=== PATIENT | male | born 1965 | race Caucasian/White ===

== ENCOUNTER 2023-10-20 15:37 | Outpatient (AMB) | payer BC, SELFPAY ==
--- NOTE | 2023-10-20 15:44 | A.OFFPC_ITS ---
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. Patient reports he has no concerns at this time. Camp Assistant Required: No Accompanied by: Self / Same As Patient Allergies No Known Allergies Allergy (Verified 10/20/23 15:49) Medication List - Last Reconciled 10/20/23 by Mayte Huizar MD chlorthalidone 25 mg PO DAILY dextroamphetamine-amphetamine 15 mg (Adderall) 15 mg PO BID ibuprofen 600 mg PO Q6H PRN levothyroxine 125 mcg PO DAILY Tobacco use date assessed: 10/20/23 Dental Screening Dental Screen Date: 10/20/23 Did you have a dental visit in the last 12 months?: Yes Did you have a dental problem in the last 6 months where you did not have access to dental care?: No Was dental information given to patient?: Patient has dentist HPI HPI Comments History of Present Illness Details 58 year old male with a past medical his tory of hypertension, thyroid ca with post surgical hypothyroid, obesity, ADD presenting for follow up CV: On chlorthalidone. BP 130/70. Denies headaches, vision changes. No chest pain or shortness of breath. ADD: On adderall. Uses marijuana intermittently History of thyroid cancer. Following with endocrinology. Reports medication compliance. Onychomycoses-improvement following oral therapy. LFTs remained stable through treatment Colonoscopy 10/16/2021. ROS CONSTITUTIONAL: Denies weight loss, fever and chills. HEENT: Denies changes in vision and hearing. RESPIRATORY: Denies SOB and cough. CV: Denies palpitations and CP GI: Denies abdominal pain, nausea, vomiting and diarrhea. : Denies dysuria and urinary frequency. MSK: Denies new myalgia and joint pain. SKIN: Denies rash and pruritus. NEUROLOGICAL: Denies headache PSYCHIATRIC: Denies recent changes in mood. PHYSICAL EXAM: GENERAL: Alert and oriented x 3. NAD EYES: EOMI. Anicteric. HENT: Moist mucous membranes. No scleral icterus. No cervical lymphadenopathy. LUNGS: Clear to auscultation bilaterally. CARDIOVASCULAR: Regular rate and rhythm. No murmur. No JVD. ABDOMEN: Soft, non-tender +bs EXTREMITIES: No edema. Non-tender. SKIN: No rashes or lesions. Warm. NEUROLOGIC: No focal neurological deficits. CN II-XII grossly intact PSYCHIATRIC: Cooperative. 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 Post-surgical hypothyroidism Onychomycosis Obese Hypertension Thyroid cancer Surgical History H/O colonoscopy History of appendectomy Family History Mother Diabetes Father Smoker Brother Brain cancer Maternal Grandmother Diabetes Maternal Grandfather Diabetes Social History Household Members: None Housing: House Are you a primary animal care technician to a significant other at home: No Do you presently have visiting nurse or other home services: No 75 years or older and lives alone: No Alcohol intake: never Patient Tobacco Use Status: Former Tobacco user Tobacco use type: Smokeless Tobacco e-Cigarette/Vaping Use: Never Used Substance Use Type: Marijuana service: No Current occupational status: employed Current occupation: [employer] Current occupational exposures/hazards: No Cognitive needs: No Hearing needs: No Vision needs: No Questionnaire PHQ-9 Over the last 2 weeks, how often have you been bothered by any of the following problems? 1. Little interest or pleasure in doing things: not at all 2. Feeling down, depressed, or hopeless: not at all 3. Trouble falling or staying asleep, or sleeping too much: not at all 4. Feeling tired or having little energy: not at all 5. Poor appetite or overeating: not at all 6. Feeling bad about yourself - or that you are a failure or have let yourself or your family down: not at all 7. Trouble concentrating on things, such as reading the newspaper or watching television: not at all 8. Moving or speaking so slowly that other people could have noticed. Or the opposite - being so fidgety or restless that you have been moving around a lot more than usual: not at all 9. Thoughts that you would be better off or of hurting yourself in some way: not at all Total score: 0 Depression Screening Interpretation: Negative (neg) Depression Screening Done: Yes 39883 - PHQ-9 Billing: Yes Source: Developed by Drs. Escobar Orellana, Thalia Henao, Luis Angel Oliva and colleagues, with an educational mark from [employer]. Thrive Questionnaire Date Thrive assessed: 10/20/23 I am a: Patient What is your living situation today?: I have a steady place to live Within the past 12 months, did the food you bought not last and you didn't have the money to get more?: Never true Within the past 12 months, did you worry whether your food would run out before you got money to buy more?: Never true Do you have trouble paying for medicines?: No Do you have trouble getting transportation to medical appointments?: No Do you have trouble paying your heating and electricity bill?: No Do you have trouble taking care of your child, family member or friend?: No Do you have trouble with day-to-day activities such as bathing, preparing meals, shopping, managing finances, etc.?: No Are you currently unemployed and looking for a job?: No Are you interested in more education?: No Please select the resources that you would like help with: None Currently or been in a relationship where the following occur: No concerns reported THRIVE Score: 0 AUDIT C Alcohol Use Questionnaire (AUDIT-C) 1. How often do you have a drink containing alcohol?: Never 3. How often do you have six or more drinks on one occasion?: Never Total Score: 0 VICTORINA-7 AMB Questionnaire VICTORINA-7 Date VICTORINA - 7 assessed: 10/20/23 Feeling nervous, anxious, or on edge: 0 = Not at all Not being able to stop or control worryin = Not at all Worrying too much about different things: 0 = Not at all Trouble relaxin = Not at all Being so restless that it is hard to sit still: 0 = Not at all Becoming easily annoyed or irritable: 0 = Not at all Feeling afraid as if something awful might happen: 0 = Not at all Total VICTORINA-7 score (0-4 normal; 5-9 mild; 10-14 moderate; 15-21 severe): 0 Source: Developed by Drs. Escobar Orellana, Thalia Henao, Luis Angel Oliva and colleagues, with an educational mark from [employer]. VICTORINA-7 Assessment Billing VICTORINA-7 Assessment Tool: VICTORINA-7 Assessment 52366 Physical exam (Primary Care) Vital Signs: Last Vital Signs Pulse 75 10/20/23 15:45 Resp 12 10/20/23 15:45 BP 130/70 10/20/23 15:45 Pulse Ox 99 10/20/23 15:45 Oxygen Delivery Method Room Air 10/20/23 15:45 BMI result Body Mass Index 33.2 Tobacco/Smoking Status: Tobacco use Status Tobacco use date assessed 10/20/23 10/20/23 15:52 Patient Tobacco Use Status Former Tobacco user 10/20/23 15:52 Tobacco use type Smokeless Tobacco 10/20/23 15:52 e-Cigarette/Vaping Use Never Used 10/20/23 15:52 PHQ-9: PHQ-9 Score PHQ-9: Total score 0 10/20/23 16:13 Depression Screening Interpretation: Negative (neg) Thrive Assessment: Date of Thrive Assessment Date Thrive assessed 10/20/23 10/20/23 15:55 Currently or been in a relationship where the following occur: No concerns reported Assessment and Plan Assessment & Plan (1) ADD (attention deficit disorder): Code(s): F98.8 - Other specified behavioral and emotional disorders with onset usually occurring in childhood and adolescence Qualifiers: Attention deficit type: attention or concentration deficit Qualified Code(s): R41.840 - Attention and concentration deficit Plan: stable on adderall. Going on vacation. Can fill early-pay out of pocket if needed (2) Post-surgical hypothyroidism: Code(s): E89.0 - Postprocedural hypothyroidism (3) Hypertension: Code(s): I10 - Essential (primary) hypertension Qualifiers: Hypertension type: primary hypertension Qualified Code(s): I10 - Essential (primary) hypertension Medications: New sildenafil (Viagra) administer 30 minutes to 4 hours before activity 100 mg PO DAILY PRN 30 tabs 11RF sexual activity Changed From dextroamphetamine-amphetamine 15 mg administer doses at least 4-6 hours apart; Partial Fill upon patient request. 15 mg PO BID 60 tabs 0RF F98.8 - Other specified behavioral and emotional disorders with onset usually occurring in childhood and adolescence To dextroamphetamine-amphetamine 15 mg (Adderall) administer doses at least 4-6 hours apart; Partial Fill upon patient request. Ok to fill early. Ok for patient to do partial fill pay out of pocket if insurance does not cover early 15 mg PO BID 60 days 120 tabs 0RF F98.8 - Other specified behavioral and emotional disorders with onset usually occurring in childhood and adolescence Refilled dextroamphetamine-amphetamine 15 mg administer doses at least 4-6 hours apart; Partial Fill upon patient request. 15 mg PO BID 60 tabs 0RF Coding Level of Care Code Est Pt Level 4 (41139) Diagnoses Attention or concentration deficit R41.840 Attention deficit type: attention or concentration deficit Post-surgical hypothyroidism E89.0 Primary hypertension I10 Hypertension type: primary hypertension Additional Codes VICTORINA-7 Assessment Billing - VICTORINA-7 Assessment Tool: VICTORINA-7 Assessment [id number] ([id number])
[2023-10-20 15:45] VITALS: BP 130/70; PULSE 75; RESP 12; O2SAT 99; BMI 33.2
== END 2023-10-20 16:16 | disposition home or self-care (01) ==
PROVIDERS: PCP Internal Medicine; Visit Provider Internal Medicine
DX: R41.840 Attention and concentration deficit (principal); E89.0 Postprocedural hypothyroidism; I10 Essential (primary) hypertension
CPT/HCPCS: 99214

== ENCOUNTER 2024-01-23 15:42 | Outpatient (AMB) | payer BC, SELFPAY ==
--- NOTE | 2024-01-23 15:46 | MHC.PC.OV ---
Vital Signs 01/23/24 15:49 Height 5 ft 4.57 in Weight 197 lb 4 oz BMI 33.3 BP 156/79 H Blood Pressure Location Lt brachial Position Sitting Respiration 16 Pulse 71 Pulse Source Pulse Oximeter Temp 97.5 F Temp Source Temporal Artery Scan Pulse Oximetry (%) 98 Oxygen Delivery Method Room Air Intake Visit Reasons: Bump under Skin Intake Note: possible hernia above umbilicus Allergies No Known Allergies Allergy (Verified 01/23/24 15:48) Tobacco use date assessed: 10/20/23 Dental Screening Dental Screen Date: 10/20/23 HPI HPI Comments History of Present Illness Details 58 year old male with a past medical history of hypertension, thyroid ca with post surgical hypothyroid, obesity, ADD presenting for follow up Reports he has a small mass he can intermittently feel right above/to the left of the belly button. Sometimes it is painful. There is no visible changes in the area. CV: On chlorthalidone. BP 130/70. Denies headaches, vision changes. No chest pain or shortness of breath. ADD: On adderall. Uses marijuana intermittently History of thyroid cancer. Following with endocrinology. Reports medication compliance. Worried about low testosterone. Has intermittent ED and fatigue, low energy Onychomycoses-improvement following oral therapy. LFTs remained stable through treatment Colonoscopy 10/16/2021. ROS see HPI PHYSICAL EXAM: GENERAL: Alert and oriented x 3. NAD EYES: EOMI. Anicteric. HENT: Moist mucous membranes. No scleral icterus. No cervical lymphadenopathy. LUNGS: Clear to auscultation bilaterally. CARDIOVASCULAR: Regular rate and rhythm. No murmur. No JVD. ABDOMEN: Soft, non-tender +bs. small 1.5cm subcutaneous mass appreciated-ttp, no overlying skin changes. EXTREMITIES: No edema. Non-tender. SKIN: No rashes or lesions. Warm. NEUROLOGIC: No focal neurological deficits. CN II-XII grossly intact PSYCHIATRIC: Cooperative. 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 Post-surgical hypothyroidism Onychomycosis Obese Hypertension Thyroid cancer Surgical History H/O colonoscopy History of appendectomy Family History Mother Diabetes Father Smoker Brother Brain cancer Maternal Grandmother Diabetes Maternal Grandfather Diabetes Social History Household Members: None Housing: House Are you a primary care transport nurse to a significant other at home: No Do you presently have visiting nurse or other home services: No 75 years or older and lives alone: No Alcohol intake: never Patient Tobacco Use Status: Former Tobacco user Tobacco use type: Smokeless Tobacco e-Cigarette/Vaping Use: Never Used Substance Use Type: Marijuana service: No Current occupational status: employed Current occupation: [employer] Current occupational exposures/hazards: No Cognitive needs: No Hearing needs: No Vision needs: No Questionnaire PHQ-9 Over the last 2 weeks, how often have you been bothered by any of the following problems? 1. Little interest or pleasure in doing things: not at all 2. Feeling down, depressed, or hopeless: not at all 3. Trouble falling or staying asleep, or sleeping too much: not at all 4. Feeling tired or having little energy: not at all 5. Poor appetite or overeating: not at all 6. Feeling bad about yourself - or that you are a failure or have let yourself or your family down: not at all 7. Trouble concentrating on things, such as reading the newspaper or watching television: not at all 8. Moving or speaking so slowly that other people could have noticed. Or the opposite - being so fidgety or restless that you have been moving around a lot more than usual: not at all 9. Thoughts that you would be better off or of hurting yourself in some way: not at all Total score: 0 Depression Screening Interpretation: Negative Depression Screening Done: Yes 38593 - PHQ-9 Billing: Yes Source: Developed by Drs. Escobar Orellana, Thalia Henao, Luis Angel Oliva and colleagues, with an educational mark from [employer]. Thrive Questionnaire Date Thrive assessed: 10/20/23 I am a: Patient What is your living situation today?: I have a steady place to live Within the past 12 months, did the food you bought not last and you didn't have the money to get more?: Never true Within the past 12 months, did you worry whether your food would run out before you got money to buy more?: Never true Do you have trouble paying for medicines?: No Do you have trouble getting transportation to medical appointments?: No Do you have trouble paying your heating and electricity bill?: No Do you have trouble taking care of your child, family member or friend?: No Do you have trouble with day-to-day activities such as bathing, preparing meals, shopping, managing finances, etc.?: No Are you currently unemployed and looking for a job?: No Are you interested in more education?: No Please select the resources that you would like help with: None Currently or been in a relationship where the following occur: No concerns reported THRIVE Score: 0 AUDIT C Alcohol Use Questionnaire (AUDIT-C) 1. How often do you have a drink containing alcohol?: Never Total Score: 0 VICTORINA-7 AMB Questionnaire VICTORINA-7 Date VICTORINA - 7 assessed: 10/20/23 Feeling nervous, anxious, or on edge: 0 = Not at all Not being able to stop or control worryin = Not at all Worrying too much about different things: 0 = Not at all Trouble relaxin = Not at all Being so restless that it is hard to sit still: 0 = Not at all Becoming easily annoyed or irritable: 0 = Not at all Feeling afraid as if something awful might happen: 0 = Not at all Total VICTORINA-7 score (0-4 normal; 5-9 mild; 10-14 moderate; 15-21 severe): 0 Source: Developed by Drs. Escobar Orellana, Thalia Henao, Lusi Angel Oliva and colleagues, with an educational mark from [employer]. Physical exam (Primary Care) Vital Signs: Last Vital Signs Temp 97.5 F 01/23/24 15:49 Pulse 71 01/23/24 15:49 Resp 16 01/23/24 15:49 BP 156/79 H 01/23/24 15:49 Pulse Ox 98 01/23/24 15:49 Oxygen Delivery Method Room Air 01/23/24 15:49 BMI result Body Mass Index 33.3 Tobacco/Smoking Status: Tobacco use Status Tobacco use date assessed 10/20/23 01/23/24 15:52 Patient Tobacco Use Status Former Tobacco user 01/23/24 15:52 Tobacco use type Smokeless Tobacco 01/23/24 15:52 e-Cigarette/Vaping Use Never Used 01/23/24 15:52 PHQ-9: PHQ-9 Score PHQ-9: Total score 0 01/26/24 06:25 Depression Screening Interpretation: Negative Thrive Assessment: Date of Thrive Assessment Date Thrive assessed 10/20/23 01/23/24 15:52 Currently or been in a relationship where the following occur: No concerns reported Coding Level of Care Code Est Pt Level 4 (33615) Complex EM visit Add On G2211 Diagnoses Periumbilical mass R19.05 Weight gain R63.5 Attention or concentration deficit R41.840 Attention deficit type: attention or concentration deficit Assessment & Plan Assessment & Plan (1) Periumbilical mass: Code(s): R19.05 - Periumbilic swelling, mass or lump Category: Medical Plan: Ultrasound soft tissue (2) Weight gain: Code(s): R63.5 - Abnormal weight gain Category: Medical Plan: Trial of mounjaro if approved otherwise patient ok for wegovy, phentermine (3) ADD (attention deficit disorder): Code(s): F98.8 - Other specified behavioral and emotional disorders with onset usually occurring in childhood and adolescence Category: Medical Qualifiers: Attention deficit type: attention or concentration deficit Qualified Code(s): R41.840 - Attention and concentration deficit Plan: stable Orders: Orders US abdomen limited 01/23/24 R19.05 - Periumbilic swelling, mass or lump Medications: New Mounjaro (tirzepatide) for 4 weeks 2.5 mg (0.5 mL) subcut QWEEK 2 mL 3RF NS
[2024-01-23 15:49] VITALS: BP 156/79; PULSE 71; RESP 16; TEMP 36.4; O2SAT 98; BMI 33.3
== END 2024-01-23 17:02 | disposition home or self-care (01) ==
PROVIDERS: PCP Internal Medicine; Visit Provider Internal Medicine
DX: R19.05 Periumbilic swelling, mass or lump (principal); R63.5 Abnormal weight gain; R41.840 Attention and concentration deficit

== ENCOUNTER → 2024-01-23 15:42 | Outpatient (BNVA) | payer BC, SELFPAY | PROVIDERS: PCP Internal Medicine; Visit Provider Internal Medicine ==

== ENCOUNTER 2024-07-06 15:46 | Outpatient (AMB) | payer BC, SELFPAY ==
--- NOTE | 2024-07-06 15:51 | A.OFFPC_ITS ---
Vital Signs 07/06/24 15:53 Height 5 ft 4.57 in Weight 200 lb 4 oz BMI 33.8 BP 138/78 Blood Pressure Location Lt brachial Position Sitting Respiration 14 Pulse 61 Pulse Source Pulse Oximeter Pulse Oximetry (%) 98 Oxygen Delivery Method Room Air Intake Visit Reasons: Discuss Medications Intake Note: Discuss medication Allergies No Known Allergies Allergy (Verified 07/06/24 15:51) Tobacco use date assessed: 10/20/23 Dental Screening Dental Screen Date: 10/20/23 HPI HPI Comments History of Present Illness Details 59 year old male with a past medical his tory of hypertension, thyroid ca with post surgical hypothyroid, obesity, ADD presenting for follow up CV: On chlorthalidone. Denies headaches, vision changes. No chest pain or shortness of breath. ADD: On adderall. Uses marijuana intermittently History of thyroid cancer. Following with endocrinology. Reports medication compliance. Worried about low testosterone. Has intermittent ED and fatigue, low energy. Labs were ordered but he did not complete them Onychomycoses-improvement following oral therapy. LFTs remained stable through treatment Colonoscopy 10/16/2021. ROS see HPI PHYSICAL EXAM: GENERAL: Alert and oriented x 3. NAD EYES: EOMI. Anicteric. HENT: Moist mucous membranes. No scleral icterus. No cervical lymphadenopathy. LUNGS: Clear to auscultation bilaterally. CARDIOVASCULAR: Regular rate and rhythm. No murmur. No JVD. ABDOMEN: Soft, non-tender +bs EXTREMITIES: No edema. Non-tender. SKIN: No rashes or lesions. Warm. NEUROLOGIC: No focal neurological deficits. CN II-XII grossly intact PSYCHIATRIC: Cooperative. 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 Post-surgical hypothyroidism Onychomycosis Obese Hypertension Thyroid cancer Surgical History H/O colonoscopy History of appendectomy Family History Mother Diabetes Father Smoker Brother Brain cancer Maternal Grandmother Diabetes Maternal Grandfather Diabetes Social History Household Members: None Housing: House Are you a primary direct care professional to a significant other at home: No Do you presently have visiting nurse or other home services: No 75 years or older and lives alone: No Alcohol intake: never Patient Tobacco Use Status: Former Tobacco user Tobacco use type: Smokeless Tobacco e-Cigarette/Vaping Use: Never Used Substance Use Type: Marijuana service: No Current occupational status: employed Current occupation: [employer] Current occupational exposures/hazards: No Cognitive needs: No Hearing needs: No Vision needs: No Questionnaire PHQ-9 Over the last 2 weeks, how often have you been bothered by any of the following problems? 1. Little interest or pleasure in doing things: not at all 2. Feeling down, depressed, or hopeless: not at all 3. Trouble falling or staying asleep, or sleeping too much: not at all 4. Feeling tired or having little energy: not at all 5. Poor appetite or overeating: not at all 6. Feeling bad about yourself - or that you are a failure or have let yourself or your family down: not at all 7. Trouble concentrating on things, such as reading the newspaper or watching television: not at all 8. Moving or speaking so slowly that other people could have noticed. Or the opposite - being so fidgety or restless that you have been moving around a lot more than usual: not at all 9. Thoughts that you would be better off or of hurting yourself in some way: not at all Total score: 0 Depression Screening Interpretation: Negative Depression Screening Done: Yes 88378 - PHQ-9 Billing: Yes Source: Developed by Drs. Escobar Orellana, Thalia Henao, Luis Angel Oliva and colleagues, with an educational mark from [employer]. Thrive Questionnaire Date Thrive assessed: 10/20/23 I am a: Patient What is your living situation today?: I have a steady place to live Within the past 12 months, did the food you bought not last and you didn't have the money to get more?: Never true Within the past 12 months, did you worry whether your food would run out before you got money to buy more?: Never true Do you have trouble paying for medicines?: No Do you have trouble getting transportation to medical appointments?: No Do you have trouble paying your heating and electricity bill?: No Do you have trouble taking care of your child, family member or friend?: No Do you have trouble with day-to-day activities such as bathing, preparing meals, shopping, managing finances, etc.?: No Are you currently unemployed and looking for a job?: No Are you interested in more education?: No Please select the resources that you would like help with: None Currently or been in a relationship where the following occur: I choose not to answer THRIVE Score: 0 AUDIT C Alcohol Use Questionnaire (AUDIT-C) 1. How often do you have a drink containing alcohol?: Never Total Score: 0 VICTORINA-7 AMB Questionnaire VICTORINA-7 Date VICTORINA - 7 assessed: 10/20/23 Feeling nervous, anxious, or on edge: 0 = Not at all Not being able to stop or control worryin = Nearly every day Worrying too much about different things: 0 = Not at all Trouble relaxin = Not at all Being so restless that it is hard to sit still: 0 = Not at all Becoming easily annoyed or irritable: 0 = Not at all Feeling afraid as if something awful might happen: 0 = Not at all Total VICTORINA-7 score (0-4 normal; 5-9 mild; 10-14 moderate; 15-21 severe): 3 Source: Developed by Drs. Escobar Orellana, Thalia Henao, Luis Angel Oliva and colleagues, with an educational mark from [employer]. Physical exam (Primary Care) Vital Signs: Last Vital Signs Pulse 61 07/06/24 15:53 Resp 14 07/06/24 15:53 BP 138/78 07/06/24 15:53 Pulse Ox 98 07/06/24 15:53 Oxygen Delivery Method Room Air 07/06/24 15:53 BMI result Body Mass Index 33.8 Tobacco/Smoking Status: Tobacco use Status Tobacco use date assessed 10/20/23 07/06/24 15:52 Patient Tobacco Use Status Former Tobacco user 07/06/24 15:52 Tobacco use type Smokeless Tobacco 07/06/24 15:52 e-Cigarette/Vaping Use Never Used 07/06/24 15:52 PHQ-9: PHQ-9 Score PHQ-9: Total score 0 07/09/24 13:57 Depression Screening Interpretation: Negative Thrive Assessment: Date of Thrive Assessment Date Thrive assessed 10/20/23 07/06/24 15:52 Currently or been in a relationship where the following occur: I choose not to answer Coding Level of Care Code Est Pt Level 4 (98712) Diagnoses Primary hypertension I10 Hypertension type: primary hypertension Attention or concentration deficit R41.840 Attention deficit type: attention or concentration deficit Post-surgical hypothyroidism E89.0 Additional Codes PHQ-9 - 18322 - PHQ-9 Billing: Yes ([id number]) Assessment & Plan Assessment & Plan (1) Hypertension: Code(s): I10 - Essential (primary) hypertension Category: Medical Qualifiers: Hypertension type: primary hypertension Qualified Code(s): I10 - Essential (primary) hypertension (2) ADD (attention deficit disorder): Code(s): F98.8 - Other specified behavioral and emotional disorders with onset usually occurring in childhood and adolescence Category: Medical Qualifiers: Attention deficit type: attention or concentration deficit Qualified Code(s): R41.840 - Attention and concentration deficit (3) Post-surgical hypothyroidism: Code(s): E89.0 - Postprocedural hypothyroidism Category: Medical Plan Blood pressure slightly suboptimal. Decrease sodium, weight loss efforts Check labs-they are overdue and he is aware. Orders: Orders Hemoglobin A1c 07/06/24 E89.0 - Postprocedural hypothyroidism, I10 - Essential (primary) hypertension, R63.5 - Abnormal weight gain, R68.82 - Decreased libido, Z13.220 - Encounter for screening for lipoid disorders Testosterone, Free/Total 07/06/24 E89.0 - Postprocedural hypothyroidism, I10 - Essential (primary) hypertension, R63.5 - Abnormal weight gain, R68.82 - Decreased libido, Z13.220 - Encounter for screening for lipoid disorders Complete Blood Count Auto Diff 07/06/24 E89.0 - Postprocedural hypothyroidism, I10 - Essential (primary) hypertension, R63.5 - Abnormal weight gain, R68.82 - Decreased libido, Z13.220 - Encounter for screening for lipoid disorders Comprehensive Met. Panel 07/06/24 E89.0 - Postprocedural hypothyroidism, I10 - Essential (primary) hypertension, R63.5 - Abnormal weight gain, R68.82 - Decreased libido, Z13.220 - Encounter for screening for lipoid disorders Lipid Panel 07/06/24 E89.0 - Postprocedural hypothyroidism, I10 - Essential (primary) hypertension, R63.5 - Abnormal weight gain, R68.82 - Decreased libido, Z13.220 - Encounter for screening for lipoid disorders Prostate Specific Antigen 07/06/24 E89.0 - Postprocedural hypothyroidism, I10 - Essential (primary) hypertension, R63.5 - Abnormal weight gain, R68.82 - Decreased libido, Z13.220 - Encounter for screening for lipoid disorders
[2024-07-06 15:53] VITALS: BP 138/78; PULSE 61; RESP 14; O2SAT 98; BMI 33.8
== END 2024-07-06 17:05 | disposition home or self-care (01) ==
LOC: HO.HMCFM 15:47
PROVIDERS: PCP Internal Medicine; Visit Provider Internal Medicine
DX: I10 Essential (primary) hypertension (principal); R41.840 Attention and concentration deficit; E89.0 Postprocedural hypothyroidism

== ENCOUNTER → 2024-07-06 15:46 | Outpatient (BNVA) | payer BC, SELFPAY | PROVIDERS: PCP Internal Medicine; Visit Provider Internal Medicine | DX: I10 Essential (primary) hypertension (principal); E89.0 Postprocedural hypothyroidism; E66.9 Obesity, unspecified; R41.840 Attention and concentration deficit; F98.8 Other specified behavioral and emotional disorders with onset usually occurring in childhood and adolescence; R68.82 Decreased libido; Z68.33 Body mass index [BMI] 33.0-33.9, adult | CPT/HCPCS: 96127 ==